=== PATIENT | female | born 1950 | race Caucasian/White ===

== ENCOUNTER 2016-10-22 11:01 | Day surgery (SDC) | payer MEDICARE, OTHER ==
--- NOTE | ~2016-10-22 | EGD ---
EGD REPORT [facility] [address] [address] NAME: DURAN COONEY : [birth year] [place]US : [place] [facility] [place] [id number] AGE: 66 ADM/REG DATE : 10/22/16 MR#: [id number] REPORT SERV DATE: 10/22/16 DICTATED BY: MANNY PÉREZ DATE: 10/22/16 REPORT STATUS : Draft TRANSCRIBED BY: [facility] DATE: 10/22/16 Endoscopy Center Patient Name: Duran Cooney Date of : 1950 Attending MD: MADELYN PÉREZ MD Procedure Date No Time: 10/22/2016 Procedure: Colonoscopy Indications: Heme positive stool, (Positive cologuard) Referring MD: DAVIS MARI Medicines: See the Anesthesia note for documentation of the administered medications Complications: No immediate complications. Estimated blood loss: None. Procedure: Pre-Anesthesia Assessment: - ASA Grade Assessment: I - A normal, healthy patient. - Prior to the procedure, a History and Physical was performed, and patient medications and allergies were reviewed. The patient's tolerance of previous anesthesia was also reviewed. The risks and benefits of the procedure and the sedation options and risks were discussed with the patient. All questions were answered, and informed consent was obtained. Prior Anticoagulants: The patient has taken no previous anticoagulant or antiplatelet agents. After reviewing the risks and benefits, the patient was deemed in satisfactory condition to undergo the procedure. After I obtained informed consent, the scope was passed under direct vision. Throughout the procedure, the patient's blood pressure, pulse, and oxygen saturations were monitored continuously. The PCF [id number] was introduced through the anus and advanced to the terminal ileum. The ileocecal valve, appendiceal orifice and rectum were photographed. The entire colon was examined. The colonoscopy was performed without difficulty. The patient tolerated the procedure well. The quality of the bowel preparation was adequate. The terminal ileum and retroflexed view of ascending colon and hepatic flexure were photographed. Findings: The perianal and digital rectal examinations were normal. A few small-mouthed diverticula were found in the entire colon. Non-bleeding internal hemorrhoids were found during retroflexion and were Grade I (internal hemorrhoids that do not prolapse). The terminal ileum appeared normal. Normal caecum and retroflexed views of ascending colon and hepatic EGD REPORT [place] [id number] [facility] [place]. [address] NAME: DURAN COONEY : [birth year] STATUS : REG [facility]#: [id number] AGE: 66 ADM/REG DATE : 10/22/16 MR#: [id number] REPORT SERV DATE: 10/22/16 DICTATED BY: MANNY PÉREZ DATE: 10/22/16 REPORT STATUS : Draft TRANSCRIBED BY: [employer] DATE: 10/22/16 flexure. Impression: - Diverticulosis in the entire examined colon. - Non-bleeding internal hemorrhoids. - Normal retroflexed views of caecum, ascending colon and hepatic flexure. Recommendation: - Patient has a contact number available for emergencies. The signs and symptoms of potential delayed complications were discussed with the patient. Return to normal activities tomorrow. Written discharge instructions were provided to the patient. - High fiber diet indefinitely. - Discharge patient to home. - Continue present medications. - Repeat colonoscopy in 5 years for surveillance. Procedure Code(s): --- Professional --- 18034, Colonoscopy, flexible, proximal to splenic flexure; diagnostic, with or without collection of specimen(s) by brushing or washing, with or without colon decompression (separate procedure) Diagnosis Code(s): --- Professional --- K64.0, First degree hemorrhoids K57.30, Diverticulosis of large intestine without perforation or abscess without bleeding R19.5, Other fecal abnormalities CPT copyright 2013 [employer]. All rights reserved. The codes documented in this report are preliminary and upon pharmacy technician trainee review may be revised to meet current compliance requirements. MADELYN PÉREZ MD 10/22/2016 1:47 PM This report has been signed electronically. Number of Addenda: 0 Note Initiated On: 10/22/2016 1:12 PM Scope Withdrawal Time 0 hours 16 minutes 39 seconds [id number] [id number]
[~2016-10-22 11:01] MED LIST: LEVAQUIN5T PO; MAG6464 MG PO; NORCO1 TA1 PO; PROBIOTIC; PROBIOTIC PO; VITAMINS/SUPPLEMENTS; [UNRECOGNIZED DRUG - OTHER] PO
== END 2016-10-22 23:59 | disposition home or self-care (01) ==
LOC: DMU 11:01
PROVIDERS: Internal Medicine Gastroenterology
PROC: 0DJD8ZZ Inspection of Lower Intestinal Tract, Via Natural or Artificial Opening Endoscopic (ICD-10-PCS; principal; 2016-10-22 13:00)
DX: K57.30 Diverticulosis of large intestine without perforation or abscess without bleeding (principal); R19.5 Other fecal abnormalities; K64.0 First degree hemorrhoids; K92.1 Melena; Z98.51 Tubal ligation status; Z90.49 Acquired absence of other specified parts of digestive tract; Z98.890 Other specified postprocedural states; Z79.899 Other long term (current) drug therapy

== ENCOUNTER 2016-11-10 07:02 | Inpatient (IN) | payer MEDICARE, OTHER ==
[2016-10-29 11:17] LABS: BASOPHILS 1.4 %; BASOPHILS ABSOLUTE 0.08 10/3/uL (0.0-0.16); EOSINOPHILS 1.4 %; EOSINOPHILS ABSOLUTE 0.08 10/3/uL (0.0-0.53); HEMATOCRIT 39.3 % (36.0-48.0); HEMOGLOBIN 13.2 g/dL (12.0-16.0); IMMATURE GRANULOCYTES 0.2 %; IMMATURE GRANULOCYTES ABSOLUTE 0.01 10/3/uL (0.0-0.11); LYMPHOCYTES 36.3 %; LYMPHOCYTES ABSOLUTE 2.06 10/3/uL (0.67-4.30); MEAN CORPUS HGB CONC 33.6 g/dL (32.0-36.0); MEAN CORPUSCULAR HEMOGLOB 30.1 pg (26.0-34.0); MEAN PLATELET VOLUME 10.6 fL (9.2-13.0); MONOCYTES 6.3 %; MONOCYTES ABSOLUTE 0.36 10/3/uL (0.21-1.20); NEUTROPHILS 54.4 %; NEUTROPHILS ABSOLUTE 3.09 10/3/uL (2.02-8.40); RBC DISTRIBUTION WIDTH 13.7 % (12.0-16.0); RED CELL COUNT 4.39 10/6/uL (4.0-5.6); WHITE BLOOD CELLS 5.7 10/3/uL (4.5-10.5)
[2016-10-29 11:18] LABS: MANUAL DIFF NO %; MEAN CORPUSCULAR VOLUME 89.5 fL (80-100); PLATELET COUNT 350 10/3/uL (150-400)
[2016-10-29 11:25] LABS: PARTIAL THROMBO TIME 33.1 SEC (22.5-37.2); PROTIME (NOT ORD) 12.9 SEC (12.0-14.5)
[2016-10-29 11:33] LABS: A/G RATIO 1.5 (0.7-1.9); ALBUMIN 4.4 G/DL (3.5-5.0); ALKALINE PHOSPHATASE 77 U/L (45-117); BUN (BLOOD UREA NITROGEN) 12 MG/DL (6-23); CALCIUM, SERUM 8.9 MG/DL (8.5-10.4); CHLORIDE, SERUM 106 MMOL/L (96-112); CO2 (CARBON DIOXIDE) 28 MMOL/L (24-34); CREATININE 0.57 MG/DL (0.55-1.02); GFR AFRICAN AMERICAN 110 ML/MIN (>=60); GFR NON AFRICAN AMERICAN 95 ML/MIN (>=60); GLUCOSE, SERUM 90 MG/DL (60-99); POTASSIUM, SERUM 4.3 MMOL/L (3.5-5.3); SGOT(AST) 20 U/L (5-40); SGPT(ALT) 13 U/L (5-65); SODIUM, SERUM 140 MMOL/L (135-148); TOTAL BILIRUBIN 0.6 MG/DL (0-1.2); TOTAL PROTEIN 7.4 G/DL (6.0-8.5)
[2016-10-29 11:39] LABS: ASCORBIC ACID (UR NOT ORDER) NEG (NEG); BILIRUBIN, URINE NEGATIVE (NEG); KETONE, URINE 20 MG/DL (NEG); LEUKOCYTE ESTERASE(NOT OR NEG (NEG); WBC (NOT ORDERED) (RFLEX) 1 (0-5)
--- NOTE | ~2016-11-10 | OP ---
Record Of Operation [facility] [address] [place]. [address] NAME: DURAN COONEY : [birth year] STATUS : ADM IN PAT#: [id number] AGE: 66 ADM/REG DATE : 11/10/16 MR#: [id number] REPORT SERV DATE: 11/10/16 DICTATED BY: FELISHA MEIDNA DATE: 11/10/16 REPORT STATUS : Draft TRANSCRIBED BY: MODL DATE: 11/10/16 DATE OF PROCEDURE: 11/10/2016 PREOPERATIVE DIAGNOSIS: Left hip arthritis. POSTOPERATIVE DIAGNOSIS: Left hip arthritis. PROCEDURE PERFORMED: Left total hip arthroplasty. SURGEON: Felisha Medina M.D. BARREL INSPECTOR TIGHT: Rickey Pedersen. ANESTHESIA: Spinal with sedation and local infusion. PROCEDURE IN DETAIL: The patient is clearly identified and after obtaining informed consent is brought to the operating room at [facility] where here the patient is induced under general anesthesia and subsequently placed in the left lateral decubitus position. This concluded, the thigh and flank are prepped and draped in the usual manner. A time-out procedure successfully performed and after registering the knee and marking the anatomy through an approximately 4.5 incision, the skin is divided. The fascial planes are divided. The lateral fascia then is divided. Hemostasis is obtained with electrocautery and a Charnley retractor is applied. The piriformis is identified, tagged, divided, and retracted over the sciatic nerve felt deep in the wound. At which point, the mini approach to the hip is formed with dividing the capsule in a mini approach with a cuff of tissues remaining at the femoral side to accomplish repair at the conclusion of the case. Dislocating the hip, end-stage arthritic changes are noted. The tissue surrounding the femoral neck are protected with the Hohmann retractor and the femoral neck cut is made according to preoperative templating. This concluded, the femoral head is removed. The acetabulum is exposed. The labral and fluvial tissues are removed and reaming is performed. Subsequently trialing with the appropriate trial, the permanent acetabular components placed with the Gaastra Sector. At which point, the acetabular trial component is then placed. The proximal femur is then addressed. The structures posteromedial to the greater trochanter are removed and this concluded the cookie-cutter canal finder lateralizer and reaming is performed. This concluded, broaching is performed and with excellent fit-fill and stability for the implant trialing is performed finding excellent leg length, stability, no impingement, good kickback, no push-pull, and the lesser trochanter palpably at the appropriate distance from the ischium when compared to preoperative templating. The trials were felt to be appropriate. These are all then removed and the permanent implants are then carefully applied uneventfully. Copious irrigation is then performed with same stability and findings noted after insertion. At which point, the joint then is carefully closed in layers including capsule, piriformis, lateral fascia, deep tissues, and skin. Aquacel dressing is applied and the patient is then allowed to awaken, is placed supine and is returned to the recovery room in stable condition having tolerated the procedure well. ESTIMATED BLOOD LOSS: 150 mL. Record Of Operation [facility] [address] [facility] [place]. [address] NAME: DURAN COOENY : 46 STATUS : ADM IN [facility]#: [id number] AGE: 66 ADM/REG DATE : 11/10/16 MR#: [id number] REPORT SERV DATE: 11/10/16 DICTATED BY: FELISHA MEDINA DATE: 11/10/16 REPORT STATUS : Draft TRANSCRIBED BY: JOSEPH DATE: 11/10/16 FLUIDS: 1700 mL. TOURNIQUET TIME: None. PATHOLOGY: Sent specimens. MICROBIOLOGY: None. COMPLICATIONS: None. SPONGE AND NEEDLE COUNTS: Reportedly correct. ANTIBIOTICS: Administered appropriately preoperatively and ordered to be discontinued within 23 hours. IMPLANTS: DePuy hip system, femur Clarence, size 4, high offset, +1/32 metal head. Acetabulum, Gaastra sector size 50 with a +4 neutral liner, and no screws. SOLOMON/JOSEPH Felisha Medina M.D. / [id number] CC: Felisha Medina M.D.
[2016-11-11 05:27] LABS: HEMATOCRIT 28.3 % (36.0-48.0); HEMOGLOBIN 9.5 g/dL (12.0-16.0)
[2016-11-11 05:33] LABS: INTERNATIONAL NORMAL RATI 1.1 UNITS (-); PROTIME (NOT ORD) 14.2 SEC (12.0-14.5)
[2016-11-11 05:38] LABS: CALCIUM, SERUM 8.1 MG/DL (8.5-10.4); CHLORIDE, SERUM 106 MMOL/L (96-112); CREATININE 0.44 MG/DL (0.55-1.02); GFR AFRICAN AMERICAN 120 ML/MIN (>=60); GFR NON AFRICAN AMERICAN 104 ML/MIN (>=60); POTASSIUM, SERUM 4.2 MMOL/L (3.5-5.3); SODIUM, SERUM 138 MMOL/L (135-148)
[2016-11-11 05:39] LABS: BUN (BLOOD UREA NITROGEN) 8 MG/DL (6-23); CO2 (CARBON DIOXIDE) 23 MMOL/L (24-34); GLUCOSE, SERUM 124 MG/DL (60-99)
[2016-11-12 05:41] LABS: HEMATOCRIT 30.3 % (36.0-48.0); HEMOGLOBIN 10.1 g/dL (12.0-16.0)
[2016-11-12 05:50] LABS: INTERNATIONAL NORMAL RATI 1.7 UNITS (-)
[2016-11-12 05:54] LABS: PROTIME (NOT ORD) 19.8 SEC (12.0-14.5)
[2016-11-12] MEDS ORDERED: NORCO1 TA1 PO (11:39)
[2016-11-12] MEDS ORDERED: C5 PO (11:39)
== END 2016-11-12 14:36 | disposition home or self-care (01) | DRG 470 ==
LOC: SDC/OF 07:02 → PACU 12:50 → 3JRC 13:55
PROVIDERS: Orthopaedic Surgery
PROC: 0SRB02A Replacement of Left Hip Joint with Metal on Polyethylene Synthetic Substitute, Uncemented, Open Approach (ICD-10-PCS; principal; 2016-11-10 09:30)
DX: M16.12 Unilateral primary osteoarthritis, left hip (principal); M81.0 Age-related osteoporosis without current pathological fracture; E78.00 Pure hypercholesterolemia, unspecified; Z90.49 Acquired absence of other specified parts of digestive tract; Z98.890 Other specified postprocedural states; Z87.442 Personal history of urinary calculi; Z80.8 Family history of malignant neoplasm of other organs or systems; Z82.49 Family history of ischemic heart disease and other diseases of the circulatory system; Z82.3 Family history of stroke
CPT/HCPCS: 36415; 71020; 72170; 80048; 80053; 81001; 85014; 85018; 85025; 85610; 85730; 86850; 86900; 86901; 87641; 88304; 88311; 93005; 97150-GP; 97161-GP; 97166-GO; 97535-GO; A9270-GY; C1776; G8978-CK-GP; G8979-CI-GP; J0690; J1170; J1885; J2270; J2370; J2405; J2795; J3010